=== PATIENT | female | born 1990 | race Caucasian/White ===

== ENCOUNTER 2020-01-07 09:39 | Outpatient (CLI) | payer OTHER | END 2020-01-07 10:30 | disposition home or self-care (01) | LOC: NST 09:39 | PROVIDERS: ATTEND Obstetrics & Gynecology | DX: Z34.83 Encounter for supervision of other normal pregnancy, third trimester (principal) ==

== ENCOUNTER 2020-01-15 10:30 | Outpatient (CLI) | payer OTHER | END 2020-01-15 11:35 | disposition home or self-care (01) | LOC: NST 10:30 | PROVIDERS: ATTEND Obstetrics & Gynecology | DX: Z34.83 Encounter for supervision of other normal pregnancy, third trimester (principal) ==

== ENCOUNTER 2020-02-11 11:54 | Outpatient (CLI) | payer OTHER | END 2020-02-11 13:31 | disposition home or self-care (01) | LOC: NST 11:54 | PROVIDERS: ATTEND Obstetrics & Gynecology | DX: Z34.83 Encounter for supervision of other normal pregnancy, third trimester (principal) ==

== ENCOUNTER 2021-07-14 16:14 | Emergency (ER) | payer OTHER ==
[~2021-07-14] VITALS: Ht 162.6 cm; Wt 54.4 kg
== END 2021-07-14 19:34 | disposition home or self-care (01) ==
LOC: ER 16:14
DX: M94.0 Chondrocostal junction syndrome [Tietze] (principal); Z91.011 Allergy to milk products

== ENCOUNTER 2023-03-08 11:14 | Outpatient (CLI) | payer OTHER | END 2023-03-08 11:20 | disposition home or self-care (01) | LOC: SONOGRAMA 11:14 | PROVIDERS: ATTEND Obstetrics & Gynecology | DX: N63.21 Unspecified lump in the left breast, upper outer quadrant (principal); N63.12 Unspecified lump in the right breast, upper inner quadrant ==

== ENCOUNTER 2023-04-07 04:09 | Emergency (ER) | payer OTHER ==
[~2023-04-07] VITALS: Ht 157.5 cm; Wt 51.7 kg
[2023-04-07 06:52] LABS: HEMATOCRIT 41.7 % (36.0-45.00); HEMOGLOBIN 14.2 g/dL (12.0-15.00); MEAN CELL VOLUME 93.9 fL (80.00-100.00); MEAN CORPUSCULAR HGB CONC 34.1 g/dl (32.0-36.0); PLATELET COUNT 259 K/uL (150-450); RED BLOOD COUNT 4.44 M/uL (4.00-6.00)
[2023-04-07 06:57] LABS: CREATININE SERUM 0.83 mg/dL (0.55-1.02); GFR 79.17; POTASSIUM 3.66 mEq/L (3.5-5.1)
[2023-04-07 09:17] LABS: URINE APPEARANCE Clear; URINE BILIRRUBIN Negative (NEGATIVE); URINE BLOOD Negative; URINE COLOR Yellow; URINE GLUCOSE Negative (NEGATIVE); URINE LEUKOCYTE Negative; URINE NITRATE Negative; URINE PROTEIN Negative (NEGATIVE); URINE UROBILINOGEN 0.2 E.U./dl
[2023-04-07 09:22] LABS: URINE BACTERIA 190.2 uL (0.0-1933); URINE EPITHELIAL CELLS 11.4 uL (0.0-38.8); URINE RBC 3.8 uL (0.0-20.8); URINE WBC 12.9 uL (0.0-23.2)
== END 2023-04-07 10:43 | disposition home or self-care (01) ==
LOC: ER 04:09
PROVIDERS: General Practice
DX: E86.0 Dehydration (principal); K52.89 Other specified noninfective gastroenteritis and colitis

== ENCOUNTER 2024-01-10 09:38 | Outpatient (CLI) | payer OTHER | END 2024-01-10 09:41 | disposition home or self-care (01) | LOC: LAB 09:38 | PROVIDERS: ATTEND Obstetrics & Gynecology | DX: U07.1 COVID-19 (principal); Z03.818 Encounter for observation for suspected exposure to other biological agents ruled out ==

== ENCOUNTER 2024-01-11 07:37 | Day surgery (SDC) | payer OTHER ==
[2024-01-02 12:58] LABS: HEMATOCRIT 41.3 % (36.0-45.00); HEMOGLOBIN 14.5 g/dL (12.0-15.00); MEAN CELL VOLUME 92.4 fL (80.00-100.00); MEAN CORPUSCULAR HEMOGLOBIN 32.5 pg (27.00-32.0); MEAN CORPUSCULAR HGB CONC 35.2 g/dl (32.0-36.0); PLATELET COUNT 264 K/uL (150-450); RED BLOOD COUNT 4.47 M/uL (4.00-6.00); RED CELL DISTRIBUTION WIDTH 12.8 % (11.5-14.5)
[2024-01-02 13:18] LABS: PH,URINE 6.5 (5.0-8.0); URINE APPEARANCE Clear; URINE BILIRRUBIN Negative (NEGATIVE); URINE BLOOD Negative; URINE COLOR Yellow; URINE GLUCOSE Negative (NEGATIVE); URINE KETONE 15 (NEGATIVE); URINE LEUKOCYTE Negative; URINE NITRATE Negative; URINE PROTEIN Negative (NEGATIVE)
[2024-01-02 13:20] LABS: INR 0.99; PARTIAL THROMBOPLASTIN TIME 27.6 SECONDS (22.0-34.0); PROTHROMBIN TIME 10.4 SECONDS (9.0-11.5)
[2024-01-02 13:22] LABS: URINE BACTERIA 449.7 uL (0.0-1933); URINE EPITHELIAL CELLS 14.8 uL (0.0-38.8); URINE WBC 9.8 uL (0.0-23.2)
[2024-01-02 13:23] LABS: URINE CAST 0.15 uL (0.0-1.40)
[2024-01-02 13:56] LABS: ALBUMIN 4.4 gm/dL (3.4-5.0); BILIRUBIN TOTAL 1.45 mg/dL (0.3-1.2); CALCIUM 9.7 mg/dL (8.5-10.1); CREATININE SERUM 0.74 mg/dL (0.55-1.02); GFR 90.38; GLOBULINA 4.1 G/DL (2.4-3.5); POTASSIUM 3.72 mEq/L (3.5-5.1); TOTAL PROTEIN 8.5 gm/dL (6.4-8.2)
[~2024-01-11 07:37] MED LIST: ONDANSETRON HCL 2 MG/ML VIAL ONE
[2024-01-11] MEDS ORDERED: MORPHINE SULFATE 4 MG/ML VIAL IV ONE (12:45)
== END 2024-01-11 14:10 | disposition home or self-care (01) ==
LOC: CIR.AMB 07:37
PROVIDERS: ATTEND Obstetrics & Gynecology Gynecology
DX: Z30.2 Encounter for sterilization (principal)